=== PATIENT | female | born 1990 | race Caucasian/White ===

== ENCOUNTER → 2016-06-10 | Outpatient (CLI) | payer OTHER ==
--- NOTE | 2016-06-10 16:34 | REP ---
Clinical: Trauma with pain. Technique: AP, lateral, bilateral oblique views left wrist. Findings: The carpal bones, surrounding osseous structures, soft tissues, and joint spaces are normal. There is no evidence for acute fracture or dislocation. No subcutaneous emphysema or radiodense foreign body. Impression: Normal wrist series. No acute fracture or dislocation Signed by Cosmo Coleman MD 06/10/2016 04:25 P
--- NOTE | 2016-06-10 16:37 | REP ---
Clinical: Trauma with pain. Technique: AP, lateral, bilateral oblique views left first digit. Findings: The osseous structures and joint spaces are intact and normal. There is no evidence for acute fracture or dislocation. Surrounding soft tissues are unremarkable. No subcutaneous emphysema or radiodense foreign body. Impression: No acute fracture or dislocation. Signed by Cosmo Coleman MD 06/10/2016 04:29 P
== END ==
LOC: M ADAMS 14:43
PROVIDERS: ATTEND Physician Assistant
DX: M25.532 Pain in left wrist (principal); M25.542 Pain in joints of left hand

== ENCOUNTER → 2017-01-26 | Outpatient (REF) | payer OTHER | LOC: M LAB REF 16:15 | PROVIDERS: ATTEND Advanced Practice Midwife | DX: Z12.4 Encounter for screening for malignant neoplasm of cervix (principal) ==

== ENCOUNTER → 2017-06-29 | Outpatient (REF) | payer OTHER | LOC: M LAB REF 08:54 | DX: J02.9 Acute pharyngitis, unspecified (principal) | CPT/HCPCS: 87081 ==

== ENCOUNTER → 2019-06-05 | Outpatient (REF) | payer OTHER | LOC: M SFHCWAGY 13:26 | PROVIDERS: ATTEND Advanced Practice Midwife | DX: Z12.4 Encounter for screening for malignant neoplasm of cervix (principal) ==

== ENCOUNTER → 2023-12-20 | Outpatient (CLI) | payer OTHER | LOC: M SLEEP HO 10:37 | PROVIDERS: ATTEND Internal Medicine Critical Care Medicine | DX: G47.30 Sleep apnea, unspecified (principal) ==

== ENCOUNTER → 2024-03-28 | Outpatient (CLI) | payer OTHER | LOC: M SLEEP 20:00 | PROVIDERS: ATTEND Internal Medicine Critical Care Medicine | DX: G47.33 Obstructive sleep apnea (adult) (pediatric) (principal) ==

== ENCOUNTER → 2024-10-02 | Outpatient (REF) | payer OTHER ==
[2024-10-02 15:20] LABS: PERCENT SATURATION 21.1 % (13.2-45.0)
[2024-10-02 15:23] LABS: FERRITIN 37.3 NG/ML (7.3-270.7)
== END ==
LOC: M LAB REF 14:40
PROVIDERS: ATTEND Internal Medicine
DX: D64.9 Anemia, unspecified (principal)